=== PATIENT | male | born 1945 | race Caucasian/White ===

== ENCOUNTER 2016-07-02 07:44 | Emergency (ER) | payer MEDICARE, OTHER ==
[~2016-07-02] VITALS: Ht 182.9 cm; Wt 90.7 kg
[~2016-07-02 07:44] MED LIST: CEPH-507 PO; CLIN300C3 PO; FISH1CAP15 PO; HYDR-3583 PO; HYDR-757 PO; MV,C1TAB21 PO; NAPR220C PO; SERT100T PO; TRAM50TA2 PO; VENL50TA PO; ZOLP10TA5 PO
--- OUTSIDE RECORDS SUMMARY | 2016-07-02 07:48 | XMS REPORT | Continuity of Care Document ---
Author Author [facility] Organization [facility] Address Unknown Phone Unavailable Care Team Providers Care Drop Count Associate Name Role Phone KATALINA BATEMAN DO PCP Insurance Providers Payer Name Policy Number Subscriber Name Relationship [employer] [id number] Philip Tracy 18 Self / Same As Patient [employer] [id number] Philip Tracy 17 Self / Same As Patient Advance Directives Directive Response Recorded Date/Time Advance Directives No 08/10/15 2:46pm Organ Donor Yes 02/06/12 2:33pm Problems Active Problems Medical Problem Onset Date Status Finger laceration Unknown Acute Medications Current Home Medications Medication Dose Units Route Directions Days/Qty Instructions Start Date Zolpidem Tartrate 10 Mg 10 Mg Oral Daily 03/08/11 Naproxen Sodium 220 Mg 500 Mg Oral Twice A Day 03/08/11 Tramadol Hcl 50 Mg 50 Mg Oral Three Times A Day 03/08/11 Fish Oil/Dha/Epa 1 Each 1 Each Oral Daily 03/08/11 Mv,Ca,Min/Iron Fum/Fa/Lyco/Lut 1 Each 1 Each Oral Daily 03/08/11 Venlafaxine Hcl 50 Mg 1 Each Oral Daily 02/06/12 Cephalexin 500 Mg 500 Mg Oral Three Times A Day 21 08/10/15 Hydrocodone/Acetaminophen 1 Each 1 Each Oral Every 6 Hours as needed for Pain 08/10/15 Past Home Medications Medication Directions Ordered Status Sertraline Hcl 100 Mg Tablet, 100 Mg Oral Daily 03/08/11 Discontinued Clindamycin Hcl 300 Mg Capsule, 1 Each Oral Give Every 8 Hrs On Schedule 01/08 Discontinued Acetaminophen/Hydrocodone Bitart 1 Tab Tab, 1 - 2 Ea Oral Q4hr Prn 03/08/11 Discontinued Social History Social History Problem Response Recorded Date/Time Alcohol Use Denies Use 08/19/2015 10:30am Recreational Drug Use No 08/19/2015 10:30am Recent Foreign Travel No 01/31/2016 9:49am Sexually Transmitted Disease No 08/10/2015 2:46pm Do you dip or chew tobacco? Yes 08/10/2015 2:46pm Sexually Transmitted Disease No 08/10/2015 2:46pm Hospital Discharge Instructions No hospital discharge instructions. Plan of Care Prescriptions See Medication Section Functional Status No functional status results. Allergies, Adverse Reactions, Alerts Allergen Type Severity Reaction Status Last Updated Tetanus Vaccines & Toxoid ([id number]) Allergy Mild Active 03/08/11 Immunizations No immunization records. Vital Signs No known vital signs results. Results No known relevant diagnostic tests, laboratory data and/or discharge summary. Procedures No known history of procedures. Encounters Encounter Location Arrival/Admit Date Discharge/Depart Date Attending Provider Discharged Recurring [facility] 02/23/16 10:24am 10:48am KATALINA BATEMAN DO
--- NOTE | 2016-07-02 08:19 | ED Integumentary General ---
General Chief Complaint: Skin/Wound Problems Stated Complaint: L ELBOW POSS MRSA Nursing Triage Note: WOKE UP THIS AM TO SWELLING IN LEFT ELBOW. THINKS HE HAS MRSA. Source: patient, family Exam Limitations: no limitations History of Present Illness Time seen by provider: 08:13 Initial Comments This 71-year-old year-old white male presents with swelling of his left elbow first noted this morning. Patient believes that he bumped the elbow yesterday. He's noticed a small abrasion over the area. He does not believe he has a foreign body in the joint. He denies associated fever, chills, ascending lymphedema, or other similar lesions. 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 Allergies and Home Medications Allergies Coded Allergies: Tetanus (Verified Allergy, Mild, 03/08/11) Home Medications Fish Oil/Dha/Epa 1 Each Capsule 1 EACH PO DAILY (Reported) Hydrocodone/Acetaminophen 1 Each Tablet #10 1 EACH PO Q6H PRN PRN PAIN Prescribed by: JP JULIEN on 08/10/15 1450 Mv,Ca,Min/Iron Fum/Fa/Lyco/Lut 1 Each Tablet 1 EACH PO DAILY (Reported) Naproxen Sodium 220 Mg Capsule 500 MG PO BID (Reported) Tramadol Hcl 50 Mg Tablet 50 MG PO TID (Reported) Venlafaxine Hcl 50 Mg Tablet 1 EACH PO DAILY (Reported) Zolpidem Tartrate 10 Mg Tablet 10 MG PO DAILY (Reported) Constitutional: No chills, No fever EENTM: No ear pain, No vision loss Respiratory: No cough Cardiovascular: No chest pain Gastrointestinal: No abdominal pain, No nausea, No vomiting Genitourinary: No dysuria, No frequency Musculoskeletal: No back pain Skin: other (swollen tender left elbow posteriorly.) Psychiatric/Neurological: No Symptoms Reported Endocrine: No Symptoms Reported Past Oaefghf-Kpfrul-Ypomqb Hx Patient Social History Alcohol Use: Denies Use Recreational Drug Use: No Smoking Status: Never a Smoker Type Used: Smokeless Tobacco Recent Foreign Travel: No Contact w/Someone Who Travel: No Recent Infectious Disease Expo: No Recent Hopitalizations: No Immunizations Up To Date Tetanus Booster (TDap): Less than 5yrs Date of Pneumonia Vaccine: Mar 30, 2011 Date of Influenza Vaccine: Jan 29, 2012 Seasonal Allergies Seasonal Allergies: No Surgeries HX Surgeries: Yes Surgeries: Orthopedic Respiratory Hx Respiratory Disorders: No Cardiovascular Hx Cardiac Disorders: Yes ("FLAP IN HEART") Cardiac Disorders: Hypertension Neurological Hx Neurological Disorders: No Reproductive System Hx Reproductive Disorders: No Sexually Transmitted Disease: No Genitourinary Hx Genitourinary Disorders: No Gastrointestinal Hx Gastrointestinal Disorders: No Musculoskeletal Hx Musculoskeletal Disorders: No Endocrine Hx Endocrine Disorders: No HEENT HX ENT Disorders: No Cancer Hx Cancer: No Psychosocial Hx Psychiatric Problems: Yes Behavioral Health Disorders: Anxiety Reviewed Nursing Assessment Reviewed/Agree w Nursing PMH: Yes Physical Exam Vital Signs Vital Sign - Last 12Hours 07/02/16 07:45 Temp 98.5 Pulse 67 Resp 18 B/P 162/86 Pulse Ox 97 Capillary Refill : Less Than 3 Seconds General Appearance: WD/WN no apparent distress HEENT: normal ENT inspection Neck: normal inspection Cardiovascular: regular rate, rhythm Respiratory: normal breath sounds Gastrointestinal: normal bowel sounds non tender Extremities: other (there is fluid-filled and erythematous area over the posterior aspect left elbow suggestive of an abscess or an olecranon bursitis.) Neurologic/Psychiatric: no motor/sensory deficits Laceration Repair : Suture Size: 5-0 Progress/Results/Core Measures Results/Orders My Orders Orders-CARMENCITA REDMOND MD Wound Culture (07/02/16 08:09) Vital Signs/I&O Vital Sign - Last 12Hours 07/02/16 07:45 Temp 98.5 Pulse 67 Resp 18 B/P 162/86 Pulse Ox 97 Blood Pressure Mean: 111 Progress Note : Time: 08:17 Progress Note The patient and were in agreement to an I&D of the fluid-filled mass to the posterior left elbow. Number 11 blade was employed to incise and drain the bursa. Serosanguineous fluid was expressed. A culture was obtained. Dressing was applied. Given the patient's history of MRSA in the past I'm going to place the patient on Bactrim for the next 10 days. I asked that the patient to follow-up closely with her primary care physician, Dr. Rowe, early this week. Warm soapy soaks of the left elbow 2-3 times a day was recommended. Patient was asked to use ibuprofen and/or Tylenol for pain. He was invited to return to the emergency department if he had any further problems or questions. Departure Impression Impression: Primary Impression: Olecranon bursitis of left elbow Disposition: HOME, SELF-CARE Condition: Improved Departure-Patient Inst. Referrals: MARIA ELENA ROWE DO (PCP/Family) Primary Care Physician Patient Instructions: Olecranon Bursitis (DC) Add. Discharge Instructions: Bactrim as prescribed. Warm soapy soaks to the left elbow 2-3 times a day. Dressed with Neosporin and gauze dressings. Ibuprofen and/or Tylenol for pain. Close follow-up with Dr. Rowe early this week please. Return if any problems or questions. All discharge instructions reviewed with patient and/or family. Voiced understanding. CARMENCITA REDMOND MD Jul 02, 2016 08:19
[2016-07-02 08:29] VITALS: BP 162/86
== END 2016-07-02 08:28 | disposition home or self-care (01) ==
LOC: EDUNIT# 07:44 → ER 07:45
DX: M70.22 Olecranon bursitis, left elbow (principal); Z86.14 Personal history of Methicillin resistant Staphylococcus aureus infection
CPT/HCPCS: 10060; 87070; 87186; 87205

== ENCOUNTER 2018-10-28 13:04 | Outpatient (CLI) | payer MEDICARE, OTHER ==
[~2018-10-28 13:04] MED LIST changes: +HYDR-4226 PO; -HYDR-757 PO
== END 2018-10-28 13:40 | disposition home or self-care (01) ==
LOC: SLEEP 13:04
PROVIDERS: ATTEND Otolaryngology Otolaryngology/Facial Plastic Surgery
DX: G47.33 Obstructive sleep apnea (adult) (pediatric) (principal)

== ENCOUNTER 2019-12-27 13:51 | Emergency (ER) | payer MEDICARE, OTHER ==
[~2019-12-27] VITALS: Ht 182.8 cm; Wt 90.9 kg
--- NOTE | 2019-12-27 17:18 | Diagnostic Imaging Report ---
INDICATION: Fall, pain. EXAMINATION: Two views of the right humerus. FINDINGS: Right humerus appears intact. No fracture or dislocation identified. IMPRESSION: 1. No acute appearing abnormality. 2. We note the elbow is incompletely evaluated at this study. If there is genuine elbow pain present, dedicated elbow radiographs would be recommended. Dictated by: Dictated on workstation # [id number]
--- NOTE | 2019-12-27 18:06 | Diagnostic Imaging Report ---
INDICATION: Fall. Shoulder pain. COMPARISON: None. FINDINGS: Three views of the right shoulder were obtained. There is no fracture, dislocation, or other acute bony abnormality identified. The soft tissues appear unremarkable. No radiopaque foreign bodies identified. The visualized portions of the right lung are clear. IMPRESSION: No acute fractures or dislocations of the right shoulder. Dictated on workstation # [id number]
--- NOTE | 2019-12-27 18:12 | ED Upper Extremity ---
General Chief Complaint: Upper Extremity Stated Complaint: R SHOULDER PAIN Nursing Triage Note: about 11:30 this am he was helping his and she hit him with her wheel chair and he fell onto the right shoulder and back. states back did hurt but is better however shoulder is still painful. Nursing Sepsis Screen: No Definite Risk Source: patient Exam Limitations: no limitations History of Present Illness Date Seen by Provider: Dec 27, 2019 Time Seen by Provider: 14:40 Initial Comments Kayleen Tracy is a well appearing 74 yo male who presented for right shoulder pain. States his accidentally ran into him with her wheel chair causing him to fall on his right side. Reports intermittent sharp pain in his humerus. States it is difficult to move his arm without pain. Took Tylenol at home with some relief. Ice pack was provided. Denies hitting head/neck, LOC. Onset: this morning Severity: mild Pain/Injury Location: right shoulder Method of Injury: fell Modifying Factors: Improves With Immobilization; Worse With Jarring, Worse With Movement; Improves With Rest Allergies and Home Medications Allergies Coded Allergies: Tetanus (Verified Allergy, Mild, 03/08/11) Home Medications Fish Oil/Dha/Epa 1 Each Capsule, 1 EACH PO DAILY, (Reported) Hydrocodone/Acetaminophen 1 Each Tablet, 1 EACH PO Q6H PRN for PAIN Prescribed by: JP JULIEN on 08/10/15 1450 Mv,Ca,Min/Iron Fum/Fa/Lyco/Lut 1 Each Tablet, 1 EACH PO DAILY, (Reported) Naproxen Sodium 220 Mg Capsule, 500 MG PO BID, (Reported) Tramadol Hcl 50 Mg Tablet, 50 MG PO TID, (Reported) Venlafaxine Hcl 50 Mg Tablet, 1 EACH PO DAILY, (Reported) Zolpidem Tartrate 10 Mg Tablet, 10 MG PO DAILY, (Reported) Patient Home Medication List Home Medication List Reviewed: Yes Review of Systems Constitutional: no symptoms reported EENTM: see HPI Respiratory: no symptoms reported Cardiovascular: no symptoms reported Gastrointestinal: no symptoms reported Genitourinary: no symptoms reported Musculoskeletal: see HPI Skin: no symptoms reported Psychiatric/Neurological: No Symptoms Reported Past Leygrxo-Tadazx-Ggfhdd Hx Patient Social History Type Used: Smokeless Tobacco Recent Foreign Travel: No Contact w/Someone Who Travel: No Recent Infectious Disease Expo: No Recent Hopitalizations: No Physical Abuse: No Sexual Abuse: No Mistreated: No Fear: No Immunizations Up To Date Tetanus Booster (TDap): Less than 5yrs Date of Pneumonia Vaccine: Mar 30, 2011 Date of Influenza Vaccine: Jan 29, 2012 Seasonal Allergies Seasonal Allergies: No Past Medical History Orthopedic Hypertension Reproductive Disorders: No Sexually Transmitted Disease: No Anxiety Physical Exam Vital Signs Vital Signs - First Documented 12/27/19 14:38 Temp 37.0 Pulse 62 Resp 20 B/P (MAP) 144/75 (98) Pulse Ox 100 O2 Delivery Room Air Capillary Refill : Less Than 3 Seconds Height, Weight, BMI Height: 6'" Weight: 200lbs. oz. 90.520988yi; 27.00 BMI Method:Stated General Appearance: WD/WN, no apparent distress HEENT: PERRL/EOMI, normal ENT inspection, TMs normal Neck: non-tender, full range of motion, supple, normal inspection Cardiovascular: normal peripheral pulses, regular rate, rhythm Respiratory: chest non-tender, lungs clear, normal breath sounds Gastrointestinal: normal bowel sounds, non tender, soft Back: normal inspection, no vertebral tenderness Shoulder: normal inspection (neurovascular intact distal to injury.), limited ROM (right ), pain; No swelling Elbow/Forearm: normal inspection, non-tender, no evidence of injury, normal ROM Wrist: Yes normal inspection, Yes non-tender, Yes no evidence of injury, Yes normal ROM Hand: normal inspection, non-tender, no evidence of injury, normal ROM Neurologic/Tendon: normal sensation, normal motor functions Neurologic/Psychiatric: no motor/sensory deficits, normal mood/affect, oriented x 3 Skin: normal color, warm/dry Procedures/Interventions Suture Size: 5-0 Progress/Results/Core Measures Results/Orders My Orders Orders - SOL MADDOX APRN Humerus, Right, 2 Views (12/27/19 16:42) Shoulder, Right, 3 Views (12/27/19 17:42) Vital Signs/I&O 12/27/19 12/27/19 14:38 18:20 Temp 37.0 37.0 Pulse 62 62 Resp 20 20 B/P (MAP) 144/75 (98) 144/75 (98) Pulse Ox 100 100 O2 Delivery Room Air Blood Pressure Mean: 98 Progress Progress Note : Progress Note After obtaining initial images of his right humerus he reported pain in his anterior shoulder. Ordered additional images of right shoulder. Diagnostic Imaging Diagonstic Imaging: Xray Plain Films/CT/US/NM/MRI: other (shoulder ) Comments NAME: KAYLEEN TRACY [facility] REC#: [id number] PT STATUS: [place] ER : 1945 PHYSICIAN: SOL MADDOX APRN ADMIT DATE: 12/27/19/ER Draft Date of Exam:12/27/19 SHOULDER, RIGHT, 3 VIEWS INDICATION: Fall. Shoulder pain. COMPARISON: None. FINDINGS: Three views of the right shoulder were obtained. There is no fracture, dislocation, or other acute bony abnormality identified. The soft tissues appear unremarkable. No radiopaque foreign bodies identified. The visualized portions of the right lung are clear. IMPRESSION: No acute fractures or dislocations of the right shoulder. Dictated on workstation # [id number] Dict: 12/27/191801 Trans: 12/27/191805 [id number] Interpreted by: JENNIFER KNOX MD Electronically signed by: Plain Films/CT/US/NM/MRI: other (right humerus ) Comments NAME: KAYLEEN TRACY [facility] REC#: [id number] PT STATUS: [place] ER : 1945 PHYSICIAN: SOL MADDOX APRN ADMIT DATE: 12/27/19/ER Signed Date of Exam:12/27/19 HUMERUS, RIGHT, 2 VIEWS INDICATION: Fall, pain. EXAMINATION: Two views of the right humerus. FINDINGS: Right humerus appears intact. No fracture or dislocation identified. IMPRESSION: 1. No acute appearing abnormality. 2. We note the elbow is incompletely evaluated at this study. If there is genuine elbow pain present, dedicated elbow radiographs would be recommended. Dictated by: Dictated on workstation # [id number] Dict: 12/27/19 170 Trans: 12/27/191835 [facility] [id number] Interpreted by: ROSA ELENA WHYTE Electronically signed by: ROSA ELENA WHYTE 12/27/191835 Reviewed: Reviewed by Me Departure Impression Primary Impression: Fall Additional Impression: Contusion of shoulder and upper arm Disposition: 01 HOME, SELF-CARE Condition: Stable/Unchanged Departure-Patient Inst. Referrals: MARIA ELENA SEVERINO DO (PCP/Family) Primary Care Physician Add. Discharge Instructions: Plan: 1. Discharge home. 2. Placed in arm sling. Instructed to follow up with PCP if pain persist. 3. Ice 20 minutes at a time 4-6x as needed for swelling and pain. May take Tylenol over the counter as needed for pain. 4. Return for any new or concerning symptoms. All discharge instructions reviewed with patient and/or family. Voiced understanding. SOL MADDOX [employer] Dec 27, 2019 18:12
[2019-12-27 18:20] VITALS: BP 144/75
== END 2019-12-27 18:20 | disposition home or self-care (01) ==
LOC: EDUNIT# 13:51 → ER 13:52
DX: S40.011A Contusion of right shoulder, initial encounter (principal); S40.021A Contusion of right upper arm, initial encounter; F41.9 Anxiety disorder, unspecified; Z88.7 Allergy status to serum and vaccine; W05.0XXA Fall from non-moving wheelchair, initial encounter
CPT/HCPCS: 73030; 73060; 99283; A4565

== ENCOUNTER → 2020-03-11 | Outpatient (CLI) | payer MEDICARE ==
--- NOTE | 2020-03-11 09:53 | Diagnostic Imaging Report ---
MRI RT UPPER EXT JOINT W/O TECHNIQUE: Multiplanar, multisequence MR imaging of the right shoulder was performed without contrast. COMPARISON: Right shoulder radiographs of 12/27/2019 INDICATION: Right shoulder pain after fall. FINDINGS: Rotator cuff: There are full-thickness incomplete tears of the supraspinatus and infraspinatus with the torn proximal stumps retracted to level of glenohumeral joint. Moderate to severe fatty infiltration of the supraspinatus and infraspinatus muscle bellies with some mild intramuscular edema also noted. Subscapularis has full-thickness tear of its cranial one half with a few of the more inferior fibers remain intact but having a very lax configuration. Subscapularis has moderate to severe fatty infiltration of the muscle belly as well. Teres minor remains intact. Glenoid labrum: By non-arthrogram imaging, the glenoid labrum appears intact. No para-labral cyst. Long head of biceps: Complete tear of the intracapsular segment of long head of biceps. A few of fragments are seen in the most distal aspect of the bicipital groove. Bones and cartilage: High riding humeral head narrowing the subacromial space. No glenohumeral chondromalacia. The acromioclavicular joint is normal in alignment without significant degenerative change. Soft tissues: Small glenohumeral joint effusion. No MRI findings to suggest adhesive capsulitis. Fluid in the subacromial and subdeltoid space is expected with full-thickness cuff tear. IMPRESSION: 1. Massive rotator cuff tear includes complete tears of the supraspinatus and infraspinatus have the proximal stump retracted the glenohumeral joint. The subscapularis also has full-thickness tearing in its cranial one half. There is both intramuscular edema and severe fatty infiltration within all through the muscle bellies indicative of acute on chronic injury. 2. Complete tear of the long head of biceps. 3. High riding humeral head without significant articular cartilage loss throughout the glenohumeral joint. Dictated by: Dictated on workstation # [id number]
== END ==
LOC: RAD 08:45
PROVIDERS: ATTEND Internal Medicine
DX: S46.011A Strain of muscle(s) and tendon(s) of the rotator cuff of right shoulder, initial encounter (principal); S46.119A Strain of muscle, fascia and tendon of long head of biceps, unspecified arm, initial encounter; W19.XXXA Unspecified fall, initial encounter
CPT/HCPCS: 73221

== ENCOUNTER 2020-08-24 14:42 | Emergency (ER) | payer MEDICARE ==
[~2020-08-24] VITALS: Ht 177 cm; Wt 91.0 kg
--- NOTE | 2020-08-24 16:05 | Diagnostic Imaging Report ---
EXAMINATION: CT head and CT cervical spine without contrast. TECHNIQUE: Multiple contiguous axial images were obtained through the brain and cervical spine without the use of intravenous contrast. Sagittal and coronal reformations through the cervical spine were then performed. All CT scans use one or more of the following dose optimizing techniques: automated exposure control, MA and/or KvP adjustment based on patient size and exam type or iterative reconstruction. HISTORY: Fall. COMPARISON: 02/06/2012. FINDINGS: The watkins-white matter differentiation is normal. No mass effect or midline shift. The ventricles are normal in size and configuration. Basilar cisterns are patent. There are no intra- or extra-axial fluid collections. There is no intracranial hemorrhage. The orbits are normal. Paranasal sinuses are normal. Mastoid air cells are clear. No soft tissue abnormality is seen. No osseus lesions or fractures are seen. There is moderate anterolisthesis of C6 on C7. No traumatic malalignment. No fracture is seen. Vertebral body heights are normal. The craniocervical junction is normal. There is mild degenerative disease in the cervical spine. There is mild facet arthropathy in the cervical spine. There is no spinal canal stenosis. No soft tissue abnormality is seen in the neck. Limited views of the superior thorax are normal. IMPRESSION: 1. No acute intracranial abnormality. 2. No cervical spine fracture. Dictated by: Dictated on workstation # [id number]
--- NOTE | 2020-08-24 16:47 | ED Fall/Injury ---
General Chief Complaint: Trauma-Non Activation Stated Complaint: FELL HIT HEAD Nursing Triage Note: SEE TRIAGE Source: patient, other (Urgent Care provider) Exam Limitations: no limitations History of Present Illness Date Seen by Provider: Aug 24, 2020 Time Seen by Provider: 15:10 Initial Comments This 75-year-old gentleman presents to the emergency room with complaints of head injury. He was stepping backward off the last couple of rungs on a ladder when he got tangled up on a canvas and fell over. He struck his head without loss of consciousness. He has an abrasion and minor swelling on the right forehead/scalp. He denies any neck pain or tenderness. He did injure his shoulder which was evaluated at urgent care by physical exam and x-ray. He presents in a sling. I did confirm with urgent care that there were no bony injuries or dislocations of the shoulder. Patient was given an outpatient order for CT scan of the head. Unfortunately, insurance would not cover it without prior authorization. Patient was then advised to check into the ER for further evaluation. Location Injury Occurred: HOME Allergies and Home Medications Allergies Coded Allergies: Tetanus (Verified Allergy, Mild, 03/08/11) Home Medications Fish Oil/Dha/Epa 1 Each Capsule, 1 EACH PO DAILY, (Reported) Hydrocodone/Acetaminophen 1 Each Tablet, 1 EACH PO Q6H PRN for PAIN Prescribed by: JP JULIEN on 08/10/15 1450 Mv,Ca,Min/Iron Fum/Fa/Lyco/Lut 1 Each Tablet, 1 EACH PO DAILY, (Reported) Naproxen Sodium 220 Mg Capsule, 500 MG PO BID, (Reported) Tramadol Hcl 50 Mg Tablet, 50 MG PO TID, (Reported) Venlafaxine Hcl 50 Mg Tablet, 1 EACH PO DAILY, (Reported) Zolpidem Tartrate 10 Mg Tablet, 10 MG PO DAILY, (Reported) Patient Home Medication List Home Medication List Reviewed: Yes Review of Systems Review of Systems Constitutional: no symptoms reported Eyes: No Symptoms Reported Ears, Nose, Mouth, Throat: no symptoms reported Respiratory: no symptoms reported Cardiovascular: no symptoms reported Gastrointestinal: no symptoms reported Genitourinary: no symptoms reported Musculoskeletal: see HPI Skin: see HPI Psychiatric/Neurological: No Symptoms Reported Past Wgxoknm-Tfrfjz-Lslmod Hx Past Med/Social Hx: Reviewed Nursing Past Med/Soc Hx Patient Social History Alcohol Use: Denies Use Smoking Status: Never a Smoker Type Used: Smokeless Tobacco Recent Infectious Disease Expo: No Recent Hopitalizations: No Immunizations Up To Date Tetanus Booster (TDap): Less than 5yrs Date of Pneumonia Vaccine: Mar 30, 2011 Date of Influenza Vaccine: Jan 29, 2012 Seasonal Allergies Seasonal Allergies: No Past Medical History Surgeries: Yes Orthopedic Respiratory: No Cardiac: Yes ("FLAP IN HEART") Hypertension Neurological: No Reproductive Disorders: No Sexually Transmitted Disease: No Gastrointestinal: No Musculoskeletal: No Endocrine: No Cancer: No Psychosocial: Yes Anxiety Physical Exam Vital Signs Vital Signs - First Documented 08/24/20 14:55 Temp 36.8 Pulse 68 Resp 18 B/P (MAP) 153/87 (109) Pulse Ox 97 Capillary Refill : Less Than 3 Seconds Height, Weight, BMI Height: 6'" Weight: 200lbs. oz. [id number]; 29.00 BMI Method:Stated General Appearance: WD/WN, no apparent distress HEENT: PERRL/EOMI, normal ENT inspection, other (Minor abrasion and swelling to the right side of the forehead/scalp) Neck: non-tender, normal inspection Cardiovascular: regular rate, rhythm, no edema, no murmur Respiratory: lungs clear, normal breath sounds, no respiratory distress Gastrointestinal: non tender, soft Extremities: normal inspection, other (Right arm in a sling. Minor tenderness to palpation of the right shoulder. 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, no motor/sensory deficits, alert, normal mood/affect, oriented x 3 Skin: normal color, other (Abrasion of the face/scalp) [place] Coma Score Best Eye Response: (4) Open Spontaneously Best Verbal Response: (5) Oriented Best Motor Response: (6) Obeys Commands [place] Total: 15 Procedures/Interventions Suture Size: 5-0 Progress/Results/Core Measures Results/Orders My Orders Orders - MAUREEN MAHAN MD Ct Head/Cervical Spine Wo (08/24/20 15:19) Vital Signs/I&O 08/24/20 08/24/20 14:55 16:53 Temp 36.8 36.8 Pulse 68 68 Resp 18 18 B/P (MAP) 153/87 (109) 153/87 (109) Pulse Ox 97 97 Blood Pressure Mean: 109 Progress Progress Note : Progress Note CT was unremarkable for acute injuries. Patient was encouraged to follow-up with Dr. ROSENBERG regarding his shoulder injury. Diagnostic Imaging Diagonstic Imaging: CT Plain Films/CT/US/NM/MRI: c-spine, head Comments CT head and cervical spine report reviewed. See report below: NAME: KAYLEEN TRACY [facility] REC#: [id number] PT STATUS: REG ER : 1945 PHYSICIAN: MAUREEN MAHAN MD ADMIT DATE: 08/24/20/ER Signed Date of Exam:08/24/20 CT HEAD/CERVICAL SPINE WO EXAMINATION: CT head and CT cervical spine without contrast. TECHNIQUE: Multiple contiguous axial images were obtained through the brain and cervical spine without the use of intravenous contrast. Sagittal and coronal reformations through the cervical spine were then performed. All CT scans use one or more of the following dose optimizing techniques: automated exposure control, MA and/or KvP adjustment based on patient size and exam type or iterative reconstruction. HISTORY: Fall. COMPARISON: 02/06/2012. FINDINGS: The watkins-white matter differentiation is normal. No mass effect or midline shift. The ventricles are normal in size and configuration. Basilar cisterns are patent. There are no intra- or extra-axial fluid collections. There is no intracranial hemorrhage. The orbits are normal. Paranasal sinuses are normal. Mastoid air cells are clear. No soft tissue abnormality is seen. No osseus lesions or fractures are seen. There is moderate anterolisthesis of C6 on C7. No traumatic malalignment. No fracture is seen. Vertebral body heights are normal. The craniocervical junction is normal. There is mild degenerative disease in the cervical spine. There is mild facet arthropathy in the cervical spine. There is no spinal canal stenosis. No soft tissue abnormality is seen in the neck. Limited views of the superior thorax are normal. IMPRESSION: 1. No acute intracranial abnormality. 2. No cervical spine fracture. Dictated by: Dictated on workstation # [id number] Dict: 08/24/20 1559 Trans: 08/24/20 165 AS6 [id number] Interpreted by: MARCELA CHU MD Electronically signed by: MARCELA CHU MD 08/24/20 1650 Departure Impression Primary Impression: Fall from ladder Qualified Codes: W11.XXXA - Fall on and from ladder, initial encounter Additional Impressions: Minor head injury Qualified Codes: S09.90XA - Unspecified injury of head, initial encounter Right shoulder injury Qualified Codes: S49.91XA - Unspecified injury of right shoulder and upper arm, initial encounter Disposition: 01 HOME, SELF-CARE Condition: Stable Departure-Patient Inst. Decision time for Depature: 16:45 Referrals: MARIA ELENA ROWE DO (PCP/Family) Primary Care Physician Patient Instructions: Closed Head Injury Add. Discharge Instructions: Follow-up with Dr. Rowe and/or Dr. Rosenberg as soon as possible for reevaluation of your shoulder. If there is concern for rotator cuff injury or other injury not detected by x-ray, further evaluation with other imaging modalities may be needed. Use your pain medication as previously prescribed. Icing in 20-minute intervals and resting your shoulder with the sling may help improve pain and swelling. Call with questions or concerns. Return to the ER if you have worsening symptoms. All discharge instructions reviewed with patient and/or family. Voiced understanding. Copy Copies To 1: MARIA ELENA RWOE DO Copies To 2: NARINDER ROSENBERG MD, JOSHUA T MD Aug 24, 2020 16:47
[2020-08-24 16:53] VITALS: BP 153/87
== END 2020-08-24 16:53 | disposition home or self-care (01) ==
LOC: EDUNIT# 14:42 → ER 14:45
DX: S00.01XA Abrasion of scalp, initial encounter (principal); S09.90XA Unspecified injury of head, initial encounter; S49.91XA Unspecified injury of right shoulder and upper arm, initial encounter; I10 Essential (primary) hypertension; F41.9 Anxiety disorder, unspecified; R40.2410 Glasgow coma scale score 13-15, unspecified time; Z88.7 Allergy status to serum and vaccine; Z79.899 Other long term (current) drug therapy; W11.XXXA Fall on and from ladder, initial encounter
CPT/HCPCS: 70450; 72125

== ENCOUNTER → 2021-01-06 | Outpatient (CLI) | payer MEDICARE ==
--- NOTE | 2021-01-06 10:22 | Diagnostic Imaging Report ---
EXAMINATION: Chest 2 view HISTORY: Pneumonia COMPARISON: None available. FINDINGS: Heart size is upper limits of normal. Pulmonary vasculature are normal. There are mild interstitial opacities within the right lung base. No pleural effusion or pneumothorax. Surgical changes from a right shoulder arthroplasty. Degenerative changes of the spine. IMPRESSION: 1. Mild interstitial opacities in the right lung base which can be seen with atypical infection. Dictated by: Dictated on workstation # [id number]
== END ==
LOC: RAD 09:40
PROVIDERS: ATTEND Internal Medicine
DX: U07.1 COVID-19 (principal); J12.82 Pneumonia due to coronavirus disease 2019; E53.8 Deficiency of other specified B group vitamins; I10 Essential (primary) hypertension; L57.0 Actinic keratosis
CPT/HCPCS: 71046

== ENCOUNTER 2021-01-11 10:59 | Outpatient (RCR) | payer MEDICARE | END 2021-01-23 | disposition home or self-care (01) | PROVIDERS: ATTEND Orthopaedic Surgery | DX: Z96.611 Presence of right artificial shoulder joint (principal) ==

== ENCOUNTER 2021-04-04 11:16 | Outpatient (RCR) | payer MEDICARE | END 2021-04-25 | disposition home or self-care (01) | PROVIDERS: ATTEND Orthopaedic Surgery | DX: Z96.611 Presence of right artificial shoulder joint (principal) ==

== ENCOUNTER 2021-11-23 09:17 | Outpatient (RCR) | payer MEDICARE | END 2021-11-27 | disposition home or self-care (01) | PROVIDERS: ATTEND Internal Medicine | DX: R26.89 Other abnormalities of gait and mobility (principal) ==

== ENCOUNTER 2021-12-26 09:14 | Outpatient (RCR) | payer MEDICARE | END 2021-12-28 | disposition home or self-care (01) | PROVIDERS: ATTEND Internal Medicine | DX: R26.89 Other abnormalities of gait and mobility (principal) ==

== ENCOUNTER 2021-12-29 09:15 | Outpatient (RCR) | payer MEDICARE | END 2021-12-29 10:00 | disposition home or self-care (01) | PROVIDERS: ATTEND Internal Medicine | DX: R26.89 Other abnormalities of gait and mobility (principal) ==

== ENCOUNTER 2022-06-13 05:40 | Outpatient (CLI) | payer MEDICARE ==
[~2022-06-13] VITALS: Ht 177.8 cm; Wt 81.8 kg
[2022-06-13] MEDS ORDERED: BUSP15TA60 PO (09:26)
[2022-06-13] MEDS ORDERED: HYDR-3820 PO (09:26)
[2022-06-13] MEDS ORDERED: TURMERIC PO (09:26)
[2022-06-13] MEDS ORDERED: CA C1TAB75 PO (09:26)
[2022-06-13] MEDS ORDERED: LORA10TA7 PO (09:26)
[2022-06-13] MEDS ORDERED: FERR325T18 PO (09:26)
[2022-06-13] MEDS ORDERED: MAGN100T5 PO (09:26)
[2022-06-13] MEDS ORDERED: ALLO100T PO (09:26)
[2022-06-13] MEDS ORDERED: TRAM50TA3 PO (09:26)
[2022-06-13] MEDS ORDERED: POTA-179 PO (09:26)
[2022-06-13] MEDS ORDERED: POTA15TA26 PO (09:26)
[2022-06-13] MEDS ORDERED: MELO7.5T46 PO (09:26)
[2022-06-13] MEDS ORDERED: AMLO-251 PO (09:26)
[2022-06-13] MEDS ORDERED: LISI40TA9 PO (09:26)
[2022-06-13] MEDS ORDERED: CNC1KV IM (09:26)
[2022-06-13] MEDS ORDERED: GABA-486 PO (09:26)
== END 2022-06-13 09:36 | disposition home or self-care (01) ==
LOC: PREOP 05:40
PROVIDERS: ATTEND Specialist
DX: Z01.818 Encounter for other preprocedural examination (principal)

== ENCOUNTER 2022-06-16 09:27 | Day surgery (SDC) | payer MEDICARE ==
[~2022-06-16] VITALS: Ht 178 cm; Wt 81.8 kg
[~2022-06-16 09:27] MED LIST changes: +ALLO100T PO; +AMLO-251 PO; +BUSP15TA60 PO; +CA C1TAB75 PO; +CNC1KV IM; +FERR325T18 PO; +GABA-486 PO; +HYDR-3820 PO; +LISI40TA9 PO; +LORA10TA7 PO; +MAGN100T5 PO; +MELO7.5T46 PO; +POTA-179 PO; +POTA15TA26 PO; +TRAM50TA3 PO; +TURMERIC PO
[2022-06-16] MEDS ORDERED: MOXIFLOXACIN OPHTH SOLN 5 MG/ML 0.3 ML SYRINGE OP ONE (10:45)
[2022-06-16] MEDS ORDERED: TIMOLOL 0.5% (CATARACTS) 0.3 ML BTL OU PRN (10:45)
[2022-06-16 10:50] VITALS: BP 134/70
[2022-06-16] MEDS: TETRACAINE 0.5% OPHTH SOLN 4 ML BTL (SINGLE DOSE ONLY) OU PRN ×2 (10:58→11:06)
[2022-06-16] MEDS ORDERED: TROPICAMIDE 1% OPH SOLN (MYDRIACYL) 15 ML BTL OP SCH (11:00)
[2022-06-16] MEDS ORDERED: PHENYLEPHRINE 10% OPHTH (NEO-SYN) 5 ML BTL OU SCH (11:00)
[2022-06-16] MEDS ORDERED: POVIDONE (BETADINE) OPHTH SOLN 5% 30 ML OP ONE (11:00)
[2022-06-16] MEDS ORDERED: acetaZOLAMIDE ER 500 MG CAP (DIAMOX SEQUELS) PO ONE (11:30)
[2022-06-16] MEDS ORDERED: MIDAZOLAM 2 MG/2 ML (VERSED) VIAL ONE (11:39)
--- NOTE | 2022-06-16 11:45 | Ophthalmologist Pre-Op Note ---
Pre-Operative Progress Note H&P Reviewed The H&P was reviewed, patient examined and no changes noted. Date H&P Reviewed: Jun 16, 2022 Time H&P Reviewed: 11:45 Pre-Op Dx Cataract, Right Eye DEQUAN JACOBSEN MD Jun 16, 2022 11:45
--- NOTE | 2022-06-16 12:07 | Ophthalmology Operative Report ---
Cataract removal/placement IOL PREOPERATIVE DIAGNOSIS: Cataract Right Eye POSTOPERATIVE DIAGNOSIS: Cataract Right Eye PROCEDURE: Cataract removal and placement of posterior chamber implant, right eye SURGEON: Gilson Jacobsen ANESTHESIA: Topical with sedation COMPLICATIONS: None ESTIMATED BLOOD LOSS: Minimal DESCRIPTION OF PROCEDURE: After proper informed consent was obtained, the patient, a 77 male, was taken to the Operating Room and the right eye was anesthetized with tetracaine. The right eye was then prepped and draped in the usual manner. A wire lid speculum was placed. A paracentesis was made at the left hand position. Preservative free lidocaine was injected into the anterior chamber followed by viscoelastic. A clear corneal incision was made in the temporal position. A capsulorrhexis was preformed and the central nuclear and cortical material were removed. The posterior capsule was polished and Daniel 24.5 AU00T0 IOL was placed into the capsular bag. The residual viscoelastic was aspirated and balanced saline solution was injected into the anterior chamber. Moxifloxacin was injected into the anterior chamber. The wound was checked and found to be water tight. The patient tolerated the procedure well without complications. GILSON JACOBSEN MD Jun 16, 2022 12:07
--- NOTE | 2022-06-16 12:09 | Anesthesia-General Post-Op ---
MAC Patient Condition Mental Status/LOC: Same as Preop Cardiovascular: Satisfactory Nausea/Vomiting: Absent Respiratory: Satisfactory Pain: Controlled Complications: Absent Post Op Complications Complications None Follow Up Care/Instructions Patient Instructions None needed. Anesthesiology Discharge Order Discharge Order Patient is doing well, no complaints, stable vital signs, no apparent adverse anesthesia problems. No complications reported per nursing. LORA MUNIZ CRNA Jun 16, 2022 12:09
[2022-06-16 12:12] VITALS: BP 158/86
== END 2022-06-16 12:15 | disposition home or self-care (01) ==
LOC: SDC 09:27
PROVIDERS: ATTEND Specialist
DX: H25.9 Unspecified age-related cataract (principal); F17.200 Nicotine dependence, unspecified, uncomplicated; Z85.820 Personal history of malignant melanoma of skin
CPT/HCPCS: 66984; V2632

== ENCOUNTER 2022-06-27 05:31 | Outpatient (CLI) | payer MEDICARE | END 2022-06-28 07:55 | disposition home or self-care (01) | LOC: PREOP 05:31 | PROVIDERS: ATTEND Specialist | DX: Z01.818 Encounter for other preprocedural examination (principal) ==

== ENCOUNTER 2022-06-30 08:34 | Day surgery (SDC) | payer MEDICARE ==
[~2022-06-30] VITALS: Ht 177.8 cm; Wt 81.8 kg
[2022-06-30] MEDS: TETRACAINE 0.5% OPHTH SOLN 4 ML BTL (SINGLE DOSE ONLY) OU PRN ×4 (08:41→08:58)
[2022-06-30] MEDS ORDERED: TIMOLOL 0.5% (CATARACTS) 0.3 ML BTL OU PRN (08:45)
[2022-06-30] MEDS ORDERED: POVIDONE (BETADINE) OPHTH SOLN 5% 30 ML OP ONE (08:45)
[2022-06-30] MEDS ORDERED: MOXIFLOXACIN OPHTH SOLN 5 MG/ML 0.3 ML SYRINGE OP ONE (08:45)
[2022-06-30] MEDS: PHENYLEPHRINE 10% OPHTH (NEO-SYN) 5 ML BTL OU SCH ×3 (08:47→08:58)
[2022-06-30] MEDS: TROPICAMIDE 1% OPH SOLN (MYDRIACYL) 15 ML BTL OP SCH ×3 (08:47→08:58)
[2022-06-30 08:50] VITALS: BP 130/77
[2022-06-30] MEDS ORDERED: MIDAZOLAM 2 MG/2 ML (VERSED) VIAL ONE (09:09)
--- NOTE | 2022-06-30 09:11 | Ophthalmologist Pre-Op Note ---
Pre-Operative Progress Note H&P Reviewed The H&P was reviewed, patient examined and no changes noted. Date H&P Reviewed: Jun 30, 2022 Time H&P Reviewed: 09:11 Pre-Op Dx Cataract, Left Eye DEQUAN JACOBSEN MD Jun 30, 2022 09:11
--- NOTE | 2022-06-30 09:32 | Ophthalmology Operative Report ---
Cataract removal/placement IOL PREOPERATIVE DIAGNOSIS: Cataract Left Eye POSTOPERATIVE DIAGNOSIS: Cataract Left Eye PROCEDURE: Cataract removal and placement of posterior chamber implant, left eye SURGEON: Gilson Jacobsen ANESTHESIA: Topical with sedation COMPLICATIONS: None ESTIMATED BLOOD LOSS: Minimal DESCRIPTION OF PROCEDURE: After proper informed consent was obtained, the patient, a 77 male, was taken to the Operating Room and the left eye was anesthetized with tetracaine. The left eye was then prepped and draped in the usual manner. A wire lid speculum was placed. A paracentesis was made at the left hand position. Preservative free lidocaine was injected into the anterior chamber followed by viscoelastic. A clear corneal incision was made in the temporal position. A capsulorrhexis was preformed and the central nuclear and cortical material were removed. The posterior capsule was polished and an Daniel 26.0 AU00T0 was placed into the capsular bag. The residual viscoelastic was aspirated and balanced saline solution was injected into the anterior chamber. Moxifloxacin was injected into the anterior chamber. The wound was checked and found to be water tight. The patient tolerated the procedure well without complications. GILSON JACOBSEN MD Jun 30, 2022 09:32
[2022-06-30 09:43] VITALS: BP 139/72
[2022-06-30] MEDS ORDERED: acetaZOLAMIDE ER 500 MG CAP (DIAMOX SEQUELS) PO ONE (11:30)
--- NOTE | 2022-06-30 11:50 | Anesthesia-General Post-Op ---
MAC Patient Condition Mental Status/LOC: Same as Preop Cardiovascular: Satisfactory Nausea/Vomiting: Absent Respiratory: Satisfactory Pain: Controlled Complications: Absent Post Op Complications Complications None Follow Up Care/Instructions Patient Instructions None needed. Anesthesiology Discharge Order Discharge Order Patient is doing well, no complaints, stable vital signs, no apparent adverse anesthesia problems. No complications reported per nursing. LORA MUNIZ CRNA Jun 30, 2022 11:50
== END 2022-06-30 09:47 | disposition home or self-care (01) ==
LOC: SDC 08:34
PROVIDERS: ATTEND Specialist
DX: H25.9 Unspecified age-related cataract (principal); F17.200 Nicotine dependence, unspecified, uncomplicated
CPT/HCPCS: 66984; V2632